=== PATIENT | female | born 1940 | race Caucasian/White ===

== ENCOUNTER 2016-07-26 17:56 | Inpatient (IN) | payer MEDICARE, BC ==
[~2016-07-26] VITALS: Ht 170.2 cm; Wt 77.1 kg
[2016-07-26] MEDS ORDERED: LURA40TA PO (18:04)
[2016-07-26] MEDS ORDERED: ALPR0.5T8 PO (18:04)
[2016-07-26] MEDS ORDERED: DICY20TA11 PO (18:04)
[2016-07-26] MEDS ORDERED: ALPR2TAB7 PO (18:04)
[2016-07-26] MEDS ORDERED: SIME125C81 PO (18:04)
[2016-07-26] MEDS ORDERED: TRAZ-147 PO (18:05)
--- NOTE | 2016-07-26 18:46 | NUR ---
RN-CO: PAGED DR HA TO OBTAIN ADMITTING ORDERS, AWAITING TO CALL BACK.
[2016-07-26 20:00] VITALS: BP 132/77
[2016-07-26] MEDS ORDERED: ZOLPIDEM TARTRATE 5 MG TABLET ONE (20:45)
[2016-07-26] MEDS: ZOLPIDEM TARTRATE 5 MG TABLET PO PRN (22:42)
[2016-07-27 00:25] VITALS: BP 126/87
[2016-07-27] MEDS ORDERED: MAG HYDROX/AL HYDROX/SIMETH 30 ML UDC ONE (04:16)
[2016-07-27] MEDS ORDERED: LORAZEPAM 0.5 MG TABLET ONE ×2 (04:16→04:27)
[2016-07-27] MEDS: LORAZEPAM 0.5 MG TABLET PO PRN ×2 (04:25→12:11)
[2016-07-27] MEDS: MAG HYDROX/AL HYDROX/SIMETH 30 ML UDC PO PRN (04:25)
--- NOTE | 2016-07-27 04:41 | NUR ---
ADMITTING RN NOTE: ADMITTED THIS 75 Y/O FEMALE FROM [facility]. PATIENT IS ON 5150 HOLD FOR GD. PER HOLD PATIENT WAS BROUGHT INTO THE EMERGENCY DEPT BY AMBULANCE. PT'S PRIMARY CARE PHYSICIAN CALLED AN AMBULANCE FOR HER SHE CALLS HIS HOUSE FREQUENTLY ASKING FOR HELP. PT LIVES ALONE AND HAS NO FAMILY SUPPORT, SO HER PRIMARY CARE PHYSICIAN REPORTED THAT SHE SOMETIMES CALLS HIS HOUSE MUCH 70 TIMES/DAY BEGGING HIM TO SEND HELP FOR HER. RN ASKED PT WHAT TYPE OF HELP SHE NEEDS. SHE REPLIED THAT SHE NEEDS HELP TO CARE FOR HER HOUSE, AND HELP WITH ADL'S AND COOKING AND MANAGING HER MEDICATIONS. PT HAS HX OF BIPOLAR AND CONSTANTLY YELLING FOR HELP IN THE HALLWAY WHILE IN ER. UPON FACE TO FACE ASSESSMENT. PT IS ALERT AND ORIENTED X1, CONFUSED, ANXIOUS. NO SOB. RESPIRATION EVEN AND UNLABORED. NO COMPLAIN OF PAIN/DISCOMFORT AT THIS TIME. NO ACUTE DISTRESS NOTED. SKIN/BODY ASSESSMENT DONE. NOTED BREAST FOLDS REDNESS. BOTH UPPER LEG SCAB. RIGHT ARM BRUISE. WOUND CONSULT TRIGGERED. PATIENT IS UNDER DR. HA FOR PSYCH AND DR. SMITH FOR MEDICAL CARE. CHECKED BELONGINGS FOR CONTRABAND. NO CONTRABAND. BED IN LOW AND LOCKED POSITION. SIDERAILS UPX2. CALL LIGHT WITHIN REACH, WILL CONTINUE TO MONITOR FOR SAFETY AND BEHAVIOR [id number].
[2016-07-27 07:50] VITALS: BP 145/79
[2016-07-27 07:59] LABS: ALBUMIN 3.6 g/dL (3.4-5.0); BASOPHILS % (AUTO) 0.5 % (0.0-2.0); BILIRUBIN,TOTAL 0.7 mg/dL (0.2-1.0); CALCIUM, SERUM 9.3 mg/dL (8.5-10.1); CREATININE 0.9 mg/dL (0.6-1.3); EOSINOPHILS # (AUTO) 0.1 /CMM (0.0-0.7); HEMATOCRIT 42 % (33-45); HEMOGLOBIN 14.2 g/dL (11.5-14.8); LYMPHOCYTES # (AUTO) 2.5 /CMM (0.8-4.8); LYMPHOCYTES % (AUTO) 30.5 % (20.0-44.0); MEAN CORPUSCULAR HEMOGLOBIN 31 PG (26.0-33.0); MEAN CORPUSCULAR HGB CONC 34 g/dl (31.0-36.0); MEAN CORPUSCULAR VOLUME 93 fL (82-100); MONOCYTES # (AUTO) 0.7 /CMM (0.1-1.30); PLATELET COUNT (AUTO) 355 /CMM (150-450); POTASSIUM 3.9 mmol/L (3.5-5.1); RDW COEFFICIENT OF VARIATION 12.2 (11.5-15.0); RED BLOOD CELL COUNT(AUTO) 4.55 MIL/uL (4.0-5.2); TOTAL PROTEIN, SERUM 7.9 g/dL (6.4-8.2); WHITE BLOOD COUNT (AUTO) 8.4 K/uL (4.3-11.0)
[2016-07-27 08:04] LABS: CHOLESTEROL 193 mg/dL (<200); HDL CHOLESTEROL 33 mg/dL (40-60); LDL 134 mg/dL (0-99); TRIGLYCERIDES 197 mg/dL (30-150)
[2016-07-27] MEDS: QUETIAPINE FUMARATE 25 MG TABLET PO SCH ×2 (12:06→20:10)
[2016-07-27] MEDS: PAROXETINE HCL 10 MG TABLET PO SCH (12:06)
--- NOTE | 2016-07-27 12:12 | NUR ---
GPS RN: PATIENT IS ANXIOUS AND RESTLESS, HARD TO REDIRECT, PROVIDED WITH CALM AND SAFE ENVIRONMENT, INSTRUCTED ON RELAXATION, ADMINISTERED ATIVAN 1MG PO, CONTINUE TO MONITOR.
[2016-07-27] MEDS: MAGNESIUM HYDROXIDE 30 ML UDC PO PRN (14:58)
--- NOTE | 2016-07-27 15:00 | NUR ---
GPS RN: MOM ADMINISTERED FOR C/O CONSTIPATION.
[2016-07-27 16:00] VITALS: BP 122/80
[2016-07-27] MEDS: GABAPENTIN 100 MG CAPSULE PO SCH (16:38)
[2016-07-27 20:00] VITALS: BP 112/65
[2016-07-27] MEDS: LURASIDONE HCL 40 MG PO SCH (21:17)
[2016-07-27] MEDS: ZOLPIDEM TARTRATE 5 MG TABLET PO PRN (22:13)
[2016-07-28] MEDS: MAGNESIUM HYDROXIDE 30 ML UDC PO PRN (05:05)
[2016-07-28] MEDS: LORAZEPAM 0.5 MG TABLET PO PRN (05:13)
[2016-07-28 08:00] VITALS: BP 139/65
[2016-07-28] MEDS: PAROXETINE HCL 10 MG TABLET PO SCH (08:23)
[2016-07-28] MEDS: GABAPENTIN 100 MG CAPSULE PO SCH ×2 (08:23→17:01)
[2016-07-28] MEDS: QUETIAPINE FUMARATE 25 MG TABLET PO SCH ×2 (08:23→21:24)
[2016-07-28] MEDS: ACETAMINOPHEN 325 MG TABLET PO PRN (08:23)
[2016-07-28] MEDS: MAG HYDROX/AL HYDROX/SIMETH 30 ML UDC PO PRN (08:51)
[2016-07-28] MEDS ORDERED: BELLADONNA /PHENOBARB 5 ML UDC 5 ML UDC PO PRN (10:30)
[2016-07-28] MEDS: DICYCLOMINE HCL 10 MG CAPSULE PO PRN (11:12)
[2016-07-28] MEDS ORDERED: LORAZEPAM INJ 2 MG/ML VIAL IM ONE (11:30)
--- NOTE | 2016-07-28 11:32 | NUR ---
GPS RN NOTE: PATIENT EXTREMELY ANXIOUS AND RESTLESS, PARANOID PT REQUESTED IM MEDICATIONS DR HA ORDER ATIVAN 2 MG IM ONCE, VSS STABLE PATIENT TOLERATED WELL WILL CONTINUE MONITORING FOR SAFETY AND BEHAVIOR Q 15 MIN
--- NOTE | 2016-07-28 12:49 | NUR ---
GPS RN NOTE: PATIENT COMPLAINING OF NAUSEA DR GUZMAN NOTIFIED WAITING FOR ORDERS.
[2016-07-28 15:50] VITALS: BP 138/76
[2016-07-28] MEDS ORDERED: ONDANSETRON HCL 4 MG/5 ML SOLUTION PO PRN (18:00)
[2016-07-28] MEDS ORDERED: ONDANSETRON 4 MG TAB.RAPDIS PO PRN (18:00)
[2016-07-28 20:29] VITALS: BP 120/70
[2016-07-28] MEDS: HOME MED MISCELLANEOUS PO PRN (21:22)
[2016-07-28] MEDS: LURASIDONE HCL 40 MG PO SCH (21:25)
[2016-07-29] MEDS: LORAZEPAM 0.5 MG TABLET PO PRN ×2 (03:38→12:56)
[2016-07-29] MEDS: HOME MED MISCELLANEOUS PO PRN ×2 (05:46→11:52)
[2016-07-29] MEDS: DICYCLOMINE HCL 10 MG CAPSULE PO PRN (07:58)
[2016-07-29 08:00] VITALS: BP 116/89
[2016-07-29] MEDS: QUETIAPINE FUMARATE 25 MG TABLET PO SCH ×2 (08:00→21:36)
[2016-07-29] MEDS: GABAPENTIN 100 MG CAPSULE PO SCH ×4 (08:00→21:36)
[2016-07-29] MEDS: PAROXETINE HCL 10 MG TABLET PO SCH (08:00)
--- NOTE | 2016-07-29 10:45 | NUR ---
WOUND CARE CONSULT: PATIENT SEEN AND SKIN ASSESSMENT DONE. PATIENT ALERT, ORIENTED, AMBULATORY, INDEPENDENT WITH BED MOBILITY, CONTINENT, MALACHI 22. SEE TODAY'S SKIN ASSESSMENT IN PCS ALONG WITH RECOMMENDATIONS DISCUSSED WITH NURSING STAFF. IN AGREEMENT WITH PLAN OF CARE. Addendum: 07/29/16 at 1046 by PAULIE ABDUL WNDNU Amended: Links added.
[2016-07-29] MEDS ORDERED: Z GUARD REMEDY 2 OZ OINT TP PRN (11:00)
[2016-07-29] MEDS: Z GUARD REMEDY 2 OZ OINT TP SCH ×2 (12:03→17:06)
[2016-07-29 16:00] VITALS: BP 124/78
--- NOTE | 2016-07-29 16:35 | NUR ---
Initial discharge plan : Pt. lives in [address] [place] [address] and would like to return. Pt's lithography contact worker is her spring forger Lang Wayne [phone]. SW will work with pt. and MD and will help form safe and proper discharge. Pt. may need placement.
--- NOTE | 2016-07-29 19:30 | NUR ---
GPS RN NOTE, RECEIVED PATIENT AWAKE AND IN BED, NO S/S OR COMPLAINTS OF PAIN AT THIS TIME. PATIENT IS DISPLAYING NO S/S OF APPARENT DISTRESS AT THIS TIME. PATIENT BREATHING IS UNLABORED WITH EQUAL RISE AND FALL OF THE CHEST. PATIENT IS ALERT AND ORIENTED X 1 ON ROOM AIR WITH A SPO2 98%. PATIENT COMPLIANT WITH MEDICATIONS, COOPERATIVE, ANXIOUS, CONFUSED AT TIMES, AND NEEDS REORIENTATION. PATIENT DENIES SUICIDE AND HOMICIDAL IDEATIONS AT THIS TIME. PATIENT ASSISTED WITH TURNING AND REPOSITIONING Q2HR AND PRN FOR COMFORT AND CIRCULATION. PATIENT HAS NO NEEDS AT THIS TIME. PATIENT REFUSED SKIN ASSESSMENT TODAY. PATIENT EDUCATED ON THE USE OF THE CALL GERMAN. PATIENT BED SIDE RAILS UP X2 FOR SAFETY, BED IS LOCKED AND LOW WILL CONTINUE TO MONITOR AND MAINTAIN SAFETY.
[2016-07-29 20:00] VITALS: BP 134/69
[2016-07-29] MEDS: LURASIDONE HCL 40 MG PO SCH (21:36)
[2016-07-30] MEDS: LORAZEPAM 0.5 MG TABLET PO PRN (03:01)
--- NOTE | 2016-07-30 03:01 | NUR ---
GPS RN NOTE, PATIENT HAS A COMPLAINT OF FEELING ANXIOUS AND WOULD LIKE MEDICATION TO HELP CALM HER DOWN. PATIENT VITAL SIGNS ARE STABLE. GAVE ATIVAN 1MG PO Q8HR PRN ORDERED. WILL REASSESS FOR ANXIETY AND I WILL CONTINUE TO MONITOR THIS PATIENT.
[2016-07-30] MEDS: MAGNESIUM HYDROXIDE 30 ML UDC PO PRN (03:09)
--- NOTE | 2016-07-30 03:09 | NUR ---
GPS RN NOTE, PATIENT HAS A COMPLAINT OF HAVING CONSTIPATION AND WOULD LIKE MEDICATION AT THIS TIME. PATIENT VITAL SIGNS ARE STABLE. GAVE MILK OF MAGNESIA 30ML 1 UNIT DOSE PO Q12HR PRN ORDERED. WILL CONTINUE TO MONITOR THIS PATIENT.
[2016-07-30] MEDS: DICYCLOMINE HCL 10 MG CAPSULE PO PRN (05:52)
--- NOTE | 2016-07-30 05:52 | NUR ---
GPS RN NOTE, PATIENT HAS A COMPLAINT OF BOWEL IRRITATION AND WOULD LIKE MEDICATION AT THIS TIME. PATIENT VITAL SIGNS ARE STABLE. GAVE BENTYL 10MG PO Q6HR PRN ORDERED. WILL CONTINUE TO MONITOR THIS PATIENT.
--- NOTE | 2016-07-30 06:00 | NUR ---
GPS RN NOTE, PATIENT HAS A COMPLAINT OF FEELING CONSTIPATED. PAGED [facility] AND INFORM DR MALAVE OF MY FINDINGS. DR MALAVE ORDERED DULCOLAX SUPPOSITORY PER RECTAL DAILY PRN. ALL ORDERS NOTED AND CARRIED OUT. WILL CONTINUE TO MONITOR THIS PATIENT.
[2016-07-30] MEDS ORDERED: BISACODYL SUPP (10 MG) 10 MG/SUPP.RECT SUPP.RECT RC ONE (06:09)
[2016-07-30] MEDS: Z GUARD REMEDY 2 OZ OINT TP SCH ×2 (06:15→18:48)
[2016-07-30] MEDS: BISACODYL SUPP (10 MG) 10 MG/SUPP.RECT SUPP.RECT RC PRN (06:16)
[2016-07-30] MEDS: PANTOPRAZOLE 40 MG TABLET.DR PO SCH (07:30)
[2016-07-30 08:00] VITALS: BP 147/81
[2016-07-30] MEDS: QUETIAPINE FUMARATE 25 MG TABLET PO SCH ×3 (08:34→17:28)
[2016-07-30] MEDS: PAROXETINE HCL 10 MG TABLET PO SCH (08:34)
[2016-07-30] MEDS: GABAPENTIN 100 MG CAPSULE PO SCH ×4 (09:00→21:13)
[2016-07-30 16:00] VITALS: BP 123/69
--- NOTE | 2016-07-30 19:30 | NUR ---
GPS RN NOTE, RECEIVED PATIENT AWAKE AND IN BED, NO S/S OR COMPLAINTS OF PAIN AT THIS TIME. PATIENT IS DISPLAYING NO S/S OF APPARENT DISTRESS AT THIS TIME. PATIENT BREATHING IS UNLABORED WITH EQUAL RISE AND FALL OF THE CHEST. PATIENT IS ALERT AND ORIENTED X 2 ON ROOM AIR WITH A SPO2 96%. PATIENT COMPLIANT WITH MEDICATIONS, COOPERATIVE, ANXIOUS, CONFUSED AT TIMES, AND NEEDS REORIENTATION. PATIENT DENIES SUICIDE AND HOMICIDAL IDEATIONS AT THIS TIME. PATIENT ASSISTED WITH TURNING AND REPOSITIONING Q2HR AND PRN FOR COMFORT AND CIRCULATION. PATIENT HAS NO NEEDS AT THIS TIME. PATIENT REFUSED SKIN ASSESSMENT TODAY. PATIENT EDUCATED ON THE USE OF THE CALL GERMAN. PATIENT BED SIDE RAILS UP X2 FOR SAFETY, BED IS LOCKED AND LOW WILL CONTINUE TO MONITOR AND MAINTAIN SAFETY.
[2016-07-30 20:25] VITALS: BP 134/77
[2016-07-30] MEDS: ZOLPIDEM TARTRATE 5 MG TABLET PO PRN (21:13)
--- NOTE | 2016-07-30 21:13 | NUR ---
GPS RN NOTE, PATIENT HAS A COMPLAINT OF NOT BEING ABLE TO SLEEP AND WOULD LIKE A SLEEPING AID AT THIS TIME. PATIENT VITAL SIGNS ARE STABLE. GAVE AMBIEN 5 MG PO HS ORDERED. WILL REASSESS FOR INSOMNIA AND I WILL CONTINUE TO MONITOR THIS PATIENT.
[2016-07-30] MEDS: LURASIDONE HCL 40 MG PO SCH (21:21)
--- NOTE | 2016-07-30 21:21 | NUR ---
GPS RN NOTE, PATIENT REFUSED TO TAKE LURASIDONE HCL 40 MG PO HS. OFFERED MEDICATION THREE TIMES AND STILL PATIENT REFUSED STATING, "I DON'T NEED THAT MEDICATION ANYMORE". EDUCATED THE PATIENT ON THE RISKS AND BENEFITS OF TAKING AND REFUSING AFOREMENTIONED MEDICATION. WILL CONTINUE TO MONITOR THIS PATIENT.
[2016-07-31] MEDS: LORAZEPAM 0.5 MG TABLET PO PRN (06:38)
[2016-07-31] MEDS: Z GUARD REMEDY 2 OZ OINT TP SCH ×2 (06:43→18:36)
[2016-07-31] MEDS: PANTOPRAZOLE 40 MG TABLET.DR PO SCH (07:30)
[2016-07-31 08:48] VITALS: BP 110/57
[2016-07-31] MEDS: GABAPENTIN 100 MG CAPSULE PO SCH ×4 (09:00→22:28)
[2016-07-31] MEDS: PAROXETINE HCL 10 MG TABLET PO SCH (09:39)
[2016-07-31] MEDS: QUETIAPINE FUMARATE 25 MG TABLET PO SCH ×3 (09:39→17:25)
--- NOTE | 2016-07-31 10:06 | NUR ---
SW left a voicemail for pt's acid washer operator, Lang Wayne [phone] regarding possibility of placing her in a facility or if she refuses facility and wants to return home, whether he will be able to rock picker the patient.
[2016-07-31 15:57] VITALS: BP 142/76
--- NOTE | 2016-07-31 20:00 | NUR ---
PATIENT IS RESTING COMFORTABLY IN BED, CALM AT THIS TIME, NO SOB, NO DISTRESS, ABLE TO ANSWER QUESTIONS APPROPRIATELY, NO BEHAVIOR DISTURBANCE AT THIS TIME, MADE SAFE AND COMFORTABLE, WILL CONTINUE TO MONITOR.
[2016-07-31 20:49] VITALS: BP 138/76
[2016-07-31 22:00] VITALS: BP 138/76
[2016-07-31] MEDS: LURASIDONE HCL 40 MG PO SCH (22:28)
[2016-08-01] MEDS: MAGNESIUM HYDROXIDE 30 ML UDC PO PRN (02:21)
[2016-08-01] MEDS: LORAZEPAM 0.5 MG TABLET PO PRN ×2 (02:22→10:24)
--- NOTE | 2016-08-01 02:34 | NUR ---
PATIENT IS ANXIOUS, CRYING OUT, REASSURED PATIENT SHE IS BEING MONITORED FREQUENTLY. GIVEN ATIVAN 1 MG PO.
[2016-08-01] MEDS: Z GUARD REMEDY 2 OZ OINT TP SCH ×2 (05:54→17:03)
[2016-08-01] MEDS: PANTOPRAZOLE 40 MG TABLET.DR PO SCH (06:22)
[2016-08-01] MEDS: BISACODYL SUPP (10 MG) 10 MG/SUPP.RECT SUPP.RECT RC PRN (06:50)
--- NOTE | 2016-08-01 07:04 | NUR ---
PATIENT IS AWAKE AND ALERT, WITH EPISODES OF ANXIETY AND SLEEPLESSNESS, GIVEN ATIVAN.COMPLAINING OF CONSTIPATION, GIVEN MOM. AFTER 4 HOURS, NO BM YET, REQUESTED SUPPOSITORY. PATIENT FEELING DISCOMFORT FROM ABDOMINAL SPASM. PATIENT IS RESTLESS, WALKING IN THE HALLWAY, UNABLE TO REDIRECT TO LIE DOWN, PATIENT VERY UPSET.
[2016-08-01 08:00] VITALS: BP 139/85
[2016-08-01] MEDS: PAROXETINE HCL 10 MG TABLET PO SCH (08:22)
[2016-08-01] MEDS: QUETIAPINE FUMARATE 25 MG TABLET PO SCH ×3 (08:22→17:02)
[2016-08-01] MEDS: GABAPENTIN 100 MG CAPSULE PO SCH ×3 (08:31→17:02)
[2016-08-01] MEDS: DICYCLOMINE HCL 10 MG CAPSULE PO PRN (10:23)
--- NOTE | 2016-08-01 10:29 | NUR ---
GPS RN: PATIENT IS INCREASINGLY ANXIOUS AND C/O ABDOMINAL CRAMPS. WANDERING IN THE HALLWAY, HARD TO REDIRECT. ADMINISTERED ATIVAN 1 MG FOR ANXIETY AND BENTYL 20MG FOR SPASMS. PROVIDED WITH CALM AND SAFE ENVIRONMENT, INSTRUCTED ON RELAXATION TECHNIQUE. VS STABLE. CONTINUE TO MONITOR.
--- NOTE | 2016-08-01 13:49 | NUR ---
SW received a voicemail from Lang Wayne [phone] and they agreed that pt. needs rehab first.
--- NOTE | 2016-08-01 13:53 | NUR ---
JENNIFER faxed a referral to [facility] [address] [place] [address] . will follow up
[2016-08-01 16:00] VITALS: BP 144/81
[2016-08-01 20:00] VITALS: BP 130/60
[2016-08-01] MEDS: LURASIDONE HCL 40 MG PO SCH (23:29)
[2016-08-02] MEDS: ZOLPIDEM TARTRATE 5 MG TABLET PO PRN ×2 (01:48→21:54)
[2016-08-02] MEDS: Z GUARD REMEDY 2 OZ OINT TP SCH ×2 (06:00→17:14)
[2016-08-02 08:13] VITALS: BP 127/63
[2016-08-02] MEDS: PANTOPRAZOLE 40 MG TABLET.DR PO SCH (08:33)
[2016-08-02] MEDS: PAROXETINE HCL 10 MG TABLET PO SCH (08:33)
[2016-08-02] MEDS: QUETIAPINE FUMARATE 25 MG TABLET PO SCH ×4 (08:34→21:49)
[2016-08-02] MEDS: GABAPENTIN 100 MG CAPSULE PO SCH ×3 (08:34→17:14)
--- NOTE | 2016-08-02 14:52 | NUR ---
Per Becky in admission, patient was accepted to [facility] ([address] [place] [address]- [phone]). Patient's friend Priscilla Wayne ([phone]) is notified and agrees with discharge plan. Per Becky, patient can be sent after lunch on 08/05/2016. Patient informed and agrees with discharge plan.
[2016-08-02 16:05] VITALS: BP 147/82
[2016-08-02 20:00] VITALS: BP 144/78
[2016-08-02] MEDS: MAGNESIUM HYDROXIDE 30 ML UDC PO PRN (20:27)
[2016-08-02] MEDS: LURASIDONE HCL 40 MG PO SCH (21:41)
[2016-08-03] MEDS: BISACODYL SUPP (10 MG) 10 MG/SUPP.RECT SUPP.RECT RC PRN (02:02)
[2016-08-03] MEDS: Z GUARD REMEDY 2 OZ OINT TP SCH ×2 (06:53→17:00)
[2016-08-03] MEDS: LORAZEPAM 0.5 MG TABLET PO PRN (06:56)
[2016-08-03] MEDS: GABAPENTIN 100 MG CAPSULE PO SCH ×3 (08:24→16:20)
[2016-08-03] MEDS: PANTOPRAZOLE 40 MG TABLET.DR PO SCH (08:24)
[2016-08-03] MEDS: PAROXETINE HCL 10 MG TABLET PO SCH (08:24)
[2016-08-03] MEDS: QUETIAPINE FUMARATE 25 MG TABLET PO SCH ×4 (08:26→21:21)
[2016-08-03 08:37] VITALS: BP 131/78
[2016-08-03] MEDS: DICYCLOMINE HCL 10 MG CAPSULE PO PRN ×2 (09:42→16:20)
[2016-08-03] MEDS: HOME MED MISCELLANEOUS PO PRN (11:34)
[2016-08-03 16:19] VITALS: BP 127/71
[2016-08-03] MEDS: ACETAMINOPHEN 325 MG TABLET PO PRN (16:59)
--- NOTE | 2016-08-03 18:15 | NUR ---
GPS RN: PATIENT IS C/O ABDOMINAL PAIN, 09/25, ASKING FOR TYLENOL ADMINISTERED TYLENOL 650MG PO ORDERED. PATIENT IS NOT IN ANY DISTRESS, CONTINUE TO MONITOR.
[2016-08-03 20:00] VITALS: BP 122/57
[2016-08-03] MEDS: LURASIDONE HCL 40 MG PO SCH (21:20)
[2016-08-03] MEDS: ZOLPIDEM TARTRATE 5 MG TABLET PO PRN (22:21)
[2016-08-04] MEDS: Z GUARD REMEDY 2 OZ OINT TP SCH ×2 (06:07→17:26)
[2016-08-04 08:00] VITALS: BP 147/77
[2016-08-04] MEDS: PAROXETINE HCL 10 MG TABLET PO SCH (08:20)
[2016-08-04] MEDS: PANTOPRAZOLE 40 MG TABLET.DR PO SCH (08:20)
[2016-08-04] MEDS: GABAPENTIN 100 MG CAPSULE PO SCH ×3 (08:20→17:25)
[2016-08-04] MEDS: QUETIAPINE FUMARATE 25 MG TABLET PO SCH ×4 (08:33→21:31)
[2016-08-04 16:00] VITALS: BP 124/67
[2016-08-04 20:20] VITALS: BP 116/62
[2016-08-04] MEDS: LURASIDONE HCL 40 MG PO SCH (21:31)
--- NOTE | 2016-08-05 00:59 | NUR ---
Pt has been confused, anxious, fragmented, & argumentative but med compliant w/o any promptings.
[2016-08-05] MEDS: LORAZEPAM 0.5 MG TABLET PO PRN (05:14)
[2016-08-05] MEDS: Z GUARD REMEDY 2 OZ OINT TP SCH (06:26)
[2016-08-05 08:00] VITALS: BP 153/77
--- NOTE | 2016-08-05 08:30 | NUR ---
MS RN RECEIVED PATIENT ON LISA,NO DISTRESS NOTED, DENIES PAIN AT THIS TIME.
[2016-08-05] MEDS: GABAPENTIN 100 MG CAPSULE PO SCH ×2 (09:11→13:16)
[2016-08-05] MEDS: PAROXETINE HCL 10 MG TABLET PO SCH (09:11)
[2016-08-05] MEDS: PANTOPRAZOLE 40 MG TABLET.DR PO SCH (09:11)
[2016-08-05] MEDS: QUETIAPINE FUMARATE 25 MG TABLET PO SCH ×2 (09:13→13:16)
[2016-08-05] MEDS ORDERED: POLYETHYLENE GLYCOL 3350 17 GM POWD.PACK PO SCH (11:00)
--- NOTE | 2016-08-05 13:30 | NUR ---
MS RN PATIENT TRANSFERRED TO [facility]IA [facility],. REPORT GIVEN TO JULIETTE,ALL NEEDS ATTENDED.
--- NOTE | 2016-08-05 17:36 | NUR ---
Discharge note: Pt.discharged to [facility] ([address] [place] [phone]- [phone] )via [facility]. Patient's friend Charlener Lang Wayne ([phone]) was notified and agreed with discharge plan. Pt. also was calm and cooperative and agreeable. Pt. denies suicidal/homicidal ideations. Discharge instructions were provided to the accepting facility and discharge paperwork has been signed.
== END 2016-08-05 13:45 | DRG 885 ==
LOC: GPS 17:56
PROVIDERS: ADMIT Psychiatry & Neurology Psychiatry; ATTEND Internal Medicine
DX: F31.5 Bipolar disorder, current episode depressed, severe, with psychotic features (principal); I10 Essential (primary) hypertension; M19.90 Unspecified osteoarthritis, unspecified site; F29 Unspecified psychosis not due to a substance or known physiological condition; E78.5 Hyperlipidemia, unspecified
CPT/HCPCS: 36415; 80053-TC; 80061-TC; 85025-TC; 87081-TC; A6402; J2060

== ENCOUNTER 2024-01-09 18:17 | Inpatient (IN) | payer BC, MEDICAID, MEDICARE ==
[~2024-01-09] VITALS: Ht 162.6 cm; Wt 59.9 kg
[~2024-01-09 18:17] MED LIST: ALPR0.5T8 PO; ALPR2TAB7 PO; DICY20TA11 PO; LURA40TA PO; SIME125C81 PO; TRAZ-257 PO
[2024-01-09] MEDS ORDERED: OLANZAPINE 10 MG VIAL IM ONE (18:40)
[2024-01-09] MEDS: OLANZAPINE 10 MG VIAL IM ONE (18:48)
[2024-01-09 18:49] LABS: BASOPHILS # (AUTO) 0.1 K/uL (0.0-0.2); BASOPHILS % (AUTO) 1.4 % (0.0-2.0); EOSINOPHILS # (AUTO) 0.1 K/uL (0.0-0.7); EOSINOPHILS % (AUTO) 2.1 % (0.0-6.0); HEMATOCRIT 40 % (33-45); HEMOGLOBIN 13.4 g/dL (11.5-14.8); LYMPHOCYTES # (AUTO) 2.2 K/uL (0.8-4.8); MEAN CORPUSCULAR HEMOGLOBIN 32 PG (26.0-33.0); MEAN CORPUSCULAR HGB CONC 33 g/dl (31.0-36.0); MEAN CORPUSCULAR VOLUME 96 fL (82-100); MONOCYTES # (AUTO) 0.5 K/uL (0.1-1.30); MONOCYTES % (AUTO) 6.5 % (2.0-12.0); NEUTROPHILS # (AUTO) 4.1 K/uL (1.8-8.9); PLATELET COUNT (AUTO) 343 K/uL (150-450); RED CELL DISTRIBUTION WIDTH 13.6 % (11.5-15.0)
[2024-01-09 18:59] LABS: ALANINE AMINOTRANSFERASE 89 U/L (12-78); ALBUMIN 2.7 g/dL (3.4-5.0); ALCOHOL, BLOOD < 3 mg/dL (0-10); ALKALINE PHOSPHATASE 80 U/L (46-116); ASPARTATE AMINOTRANSFERASE 65 U/L (15-37); BILIRUBIN,DIRECT 0.1 mg/dL (0.0-0.2); BILIRUBIN,TOTAL 0.4 mg/dL (0.2-1.0); CALCIUM, SERUM 9.1 mg/dL (8.5-10.1); CARBON DIOXIDE 23 mmol/L (21-32); CHLORIDE 104 mmol/L (98-107); CREATININE 0.6 mg/dL (0.6-1.3); GLUCOSE 98 mg/dL (74-106); POTASSIUM 4.1 mmol/L (3.5-5.1); SODIUM SERUM 137 mmol/L (136-145); TOTAL PROTEIN, SERUM 6.5 g/dL (6.4-8.2); UREA NITROGEN, BLOOD 5 mg/dL (7-18)
[2024-01-09 19:00] LABS: SALICYLATE < 0.2 mg/dL (2.8-20.0)
[2024-01-09 19:01] LABS: ACETAMINOPHEN <10 ug/ml (10-30)
[2024-01-09 19:46] LABS: APPEARANCE,URINE SLIGHTLY CLOUDY (CLEAR); BILIRUBIN,URINE NEGATIVE (NEGATIVE); BLOOD, URINE 1+ Ery/uL (NEGATIVE); COLOR,URINE YELLOW (YELLOW); KETONES,URINE TRACE mg/dL (NEGATIVE); LEUKOCYTE ESTERASE ,URINE 3+ (NEGATIVE); NITRITE, URINE POSITIVE (NEGATIVE); PROTEIN,URINE 1+ mg/dl (NEGATIVE); UGLUCOSE NEGATIVE (NEGATIVE); UROBILINOGEN,URINE 0.2 EU/dL (0.2)
[2024-01-09 19:52] LABS: ADD URINE CULTURE YES; BACTERIA,URINE 1+ /HPF (None Seen); WBC,URINE 21-50 /HPF (0-3); YEAST,URINE Few /HPF (None Seen)
[2024-01-09 19:53] LABS: CALCIUM PHOSPHATE CRYSTALS,UR Few /HPF (None Seen)
[2024-01-09 19:59] LABS: AMPHETAMINE, URINE NEGATIVE (NEGATIVE); BARBITURATE, URINE NEGATIVE (NEGATIVE); BENZODIAZEPINE, URINE NEGATIVE (NEGATIVE); CANNABINOID, URINE NEGATIVE (NEGATIVE); COCCAINE, URINE NEGATIVE (NEGATIVE); OPIATE, URINE NEGATIVE (NEGATIVE); PHENCYCLIDINE SCREEN,URINE NEGATIVE (NEGATIVE)
[2024-01-09] MEDS ORDERED: CEPHALEXIN MONOHYDRATE 500 MG CAPSULE PO ONE (20:04)
[2024-01-09] MEDS: CEPHALEXIN MONOHYDRATE 500 MG CAPSULE PO ONE (20:05)
[2024-01-10] MEDS ORDERED: MINERAL OIL 133 ML (PYXIS) 1 EA ENEMA RC ONE (05:46)
[2024-01-10] MEDS: MINERAL OIL 133 ML (PYXIS) 1 EA ENEMA RC ONE (05:52)
[2024-01-10] MEDS ORDERED: ONDANSETRON HCL/PF 4 MG/2 ML VIAL IVP PRN (06:00)
[2024-01-10] MEDS ORDERED: Z GUARD REMEDY 4 OZ OINT TP PRN (06:00)
[2024-01-10] MEDS ORDERED: CEPHALEXIN MONOHYDRATE 500 MG CAPSULE PO ONE (08:01)
[2024-01-10] MEDS ORDERED: PANTOPRAZOLE 40 MG TABLET.DR PO ONE (08:02)
[2024-01-10] MEDS: PANTOPRAZOLE 40 MG TABLET.DR PO SCH (08:06)
[2024-01-10] MEDS: CEPHALEXIN MONOHYDRATE 500 MG CAPSULE PO SCH (08:06)
[2024-01-10 08:45] VITALS: BP 118/65; TEMP 98.4; O2SAT 98
[2024-01-10] MEDS ORDERED: MAGN400O6 PO (09:10)
[2024-01-10] MEDS ORDERED: NA P133E RC (09:10)
[2024-01-10] MEDS ORDERED: ZINC220C6 PO (09:10)
[2024-01-10] MEDS ORDERED: IPRA0.2S49 IH ×2 (09:10)
[2024-01-10] MEDS ORDERED: IPRA3AMP23 IH (09:10)
[2024-01-10] MEDS ORDERED: MELA3TAB41 PO (09:10)
[2024-01-10] MEDS ORDERED: LACT10SO29 PO (09:10)
[2024-01-10] MEDS ORDERED: DIVA250T4 PO (09:10)
[2024-01-10] MEDS ORDERED: MAG355OR18 PO (09:10)
[2024-01-10] MEDS ORDERED: ASCO500T10 PO (09:10)
[2024-01-10] MEDS ORDERED: BISA10SU11 RC (09:10)
[2024-01-10] MEDS ORDERED: QUET50TA PO (09:10)
[2024-01-10] MEDS ORDERED: ALBU1.257 IH (09:10)
[2024-01-10] MEDS ORDERED: ACET325T53 PO (09:10)
[2024-01-10] MEDS ORDERED: ALBU1.25 IH (09:10)
[2024-01-10] MEDS ORDERED: TRAM50TA2 PO (09:10)
[2024-01-10] MEDS ORDERED: SENN-291 PO (09:10)
[2024-01-10] MEDS ORDERED: ASPI-869 PO (09:10)
[2024-01-10] MEDS ORDERED: METH500T6 PO (09:10)
[2024-01-10] MEDS ORDERED: DOCU100C36 PO (09:10)
[2024-01-10] MEDS ORDERED: QUET200T PO (09:10)
[2024-01-10] MEDS ORDERED: ERGO50CA PO (09:10)
[2024-01-10] MEDS ORDERED: POLY17PO4 PO (09:10)
[2024-01-10] MEDS ORDERED: CALC-343 PO (09:10)
[2024-01-10] MEDS ORDERED: OXYC5TAB3 PO (09:10)
[2024-01-10] MEDS ORDERED: PANT40TA49 PO (09:10)
[2024-01-10 10:21] LABS: BASOPHILS # (AUTO) 0.1 K/uL (0.0-0.2); BASOPHILS % (AUTO) 0.9 % (0.0-2.0); EOSINOPHILS # (AUTO) 0.1 K/uL (0.0-0.7); EOSINOPHILS % (AUTO) 2.3 % (0.0-6.0); HEMATOCRIT 41 % (33-45); HEMOGLOBIN 13.4 g/dL (11.5-14.8); LYMPHOCYTES # (AUTO) 1.4 K/uL (0.8-4.8); LYMPHOCYTES % (AUTO) 22.1 % (20.0-44.0); MEAN CORPUSCULAR HEMOGLOBIN 31 PG (26.0-33.0); MEAN CORPUSCULAR HGB CONC 33 g/dl (31.0-36.0); MEAN CORPUSCULAR VOLUME 95 fL (82-100); MONOCYTES # (AUTO) 0.5 K/uL (0.1-1.30); MONOCYTES % (AUTO) 7.4 % (2.0-12.0); NEUTROPHILS # (AUTO) 4.3 K/uL (1.8-8.9); NEUTROPHILS % (AUTO) 67.3 % (43.0-81.0); PLATELET COUNT (AUTO) 314 K/uL (150-450); RED CELL DISTRIBUTION WIDTH 13.6 % (11.5-15.0); WHITE BLOOD COUNT (AUTO) 6.4 K/uL (4.3-11.0)
[2024-01-10 10:51] LABS: ALBUMIN 2.3 g/dL (3.4-5.0); ALKALINE PHOSPHATASE 80 U/L (46-116); ASPARTATE AMINOTRANSFERASE 47 U/L (15-37); BILIRUBIN,TOTAL 0.4 mg/dL (0.2-1.0); CARBON DIOXIDE 23 mmol/L (21-32); CHLORIDE 105 mmol/L (98-107); CREATININE 0.5 mg/dL (0.6-1.3); GLUCOSE 70 mg/dL (74-106); MAGNESIUM 2.1 mg/dL (1.8-2.4); POTASSIUM 3.8 mmol/L (3.5-5.1); SODIUM SERUM 139 mmol/L (136-145); TOTAL PROTEIN, SERUM 6.4 g/dL (6.4-8.2); UREA NITROGEN, BLOOD 2 mg/dL (7-18)
[2024-01-10 11:08] LABS: ALANINE AMINOTRANSFERASE 80 U/L (12-78)
[2024-01-10 11:22] LABS: BILIRUBIN,DIRECT 0.1 mg/dL (0.0-0.2)
[2024-01-10] MEDS: QUETIAPINE FUMARATE 25 MG TABLET PO SCH (12:09)
[2024-01-10] MEDS: ACETAMINOPHEN 325 MG TABLET PO PRN (13:14)
[2024-01-10 16:00] VITALS: BP 105/75; TEMP 98.4; O2SAT 97
[2024-01-10] MEDS: MAGNESIUM HYDROXIDE 30 ML UDC PO PRN (18:04)
[2024-01-10 20:00] VITALS: BP 109/74; TEMP 98.2; O2SAT 95; O2SAT 96
[2024-01-10] MEDS: DIVALPROEX SODIUM 125 MG CAP.SPRINK PO SCH (21:02)
[2024-01-11 07:26] LABS: BASOPHILS # (AUTO) 0.1 K/uL (0.0-0.2); BASOPHILS % (AUTO) 1.1 % (0.0-2.0); EOSINOPHILS # (AUTO) 0.2 K/uL (0.0-0.7); EOSINOPHILS % (AUTO) 4.1 % (0.0-6.0); HEMATOCRIT 39 % (33-45); HEMOGLOBIN 12.7 g/dL (11.5-14.8); LYMPHOCYTES # (AUTO) 1.7 K/uL (0.8-4.8); LYMPHOCYTES % (AUTO) 33.5 % (20.0-44.0); MEAN CORPUSCULAR HEMOGLOBIN 31 PG (26.0-33.0); MEAN CORPUSCULAR HGB CONC 33 g/dl (31.0-36.0); MEAN CORPUSCULAR VOLUME 94 fL (82-100); MONOCYTES # (AUTO) 0.5 K/uL (0.1-1.30); MONOCYTES % (AUTO) 10.1 % (2.0-12.0); NEUTROPHILS # (AUTO) 2.5 K/uL (1.8-8.9); NEUTROPHILS % (AUTO) 51.2 % (43.0-81.0); PLATELET COUNT (AUTO) 314 K/uL (150-450); RED BLOOD CELL COUNT(AUTO) 4.11 MIL/uL (4.0-5.2); RED CELL DISTRIBUTION WIDTH 13.6 % (11.5-15.0)
[2024-01-11 07:47] LABS: ALANINE AMINOTRANSFERASE 60 U/L (12-78); ALBUMIN 2.2 g/dL (3.4-5.0); ALKALINE PHOSPHATASE 72 U/L (46-116); ASPARTATE AMINOTRANSFERASE 32 U/L (15-37); BILIRUBIN,TOTAL 0.3 mg/dL (0.2-1.0); CALCIUM, SERUM 9.2 mg/dL (8.5-10.1); CARBON DIOXIDE 28 mmol/L (21-32); CHLORIDE 106 mmol/L (98-107); CREATININE 0.5 mg/dL (0.6-1.3); GLUCOSE 87 mg/dL (74-106); MAGNESIUM 2.4 mg/dL (1.8-2.4); PHOSPHORUS 4.2 mg/dL (2.5-4.9); POTASSIUM 4.1 mmol/L (3.5-5.1); SODIUM SERUM 140 mmol/L (136-145); TOTAL PROTEIN, SERUM 6.1 g/dL (6.4-8.2); UREA NITROGEN, BLOOD 5 mg/dL (7-18)
[2024-01-11 19:38] VITALS: BP 110/59; TEMP 97.4; O2SAT 97
[2024-01-11 20:00] VITALS: BP 110/57; TEMP 97.4; O2SAT 97
[2024-01-11] MEDS: MUPIROCIN OINT 2% 22 GM TUBE NS SCH (20:22)
[2024-01-12 09:00] VITALS: BP 115/57; TEMP 97.7; O2SAT 95
[2024-01-12] MEDS: ENSURE ENLIVE 237 ML LIQUID (VANILLA) PO SCH (17:22)
[2024-01-12] MEDS: LORAZEPAM 1 MG TABLET PO PRN (18:16)
[2024-01-12 18:30] VITALS: BP 158/91; O2SAT 96
[2024-01-12 20:28] VITALS: BP 104/48; TEMP 97.9; O2SAT 96
[2024-01-13 07:30] VITALS: BP 108/68; TEMP 97.5; O2SAT 96
[2024-01-13] MEDS ORDERED: NITR100C PO (11:21)
[2024-01-13 15:58] VITALS: BP 128/71; TEMP 97.9; O2SAT 95
[2024-01-13 20:10] VITALS: BP 123/75; TEMP 97.5; O2SAT 99
[2024-01-14 07:30] VITALS: BP 123/65; TEMP 96.5; O2SAT 94
[2024-01-14] MEDS: NITROFURANTOIN/MONOHYDRATE MACROCRYSTALS 100 MG CAPSULE PO SCH (09:16)
[2024-01-14] MEDS: DOCUSATE SODIUM 100 MG CAPSULE PO SCH (10:35)
[2024-01-14] MEDS: POLYETHYLENE GLYCOL 3350 17 GM POWD.PACK PO PRN (10:35)
[2024-01-14 16:00] VITALS: BP 127/71; TEMP 98.2; O2SAT 98
[2024-01-14 20:12] VITALS: BP 115/69; TEMP 97.7; O2SAT 95
[2024-01-15 08:00] VITALS: BP 122/67; TEMP 97.9; O2SAT 99
[2024-01-15] MEDS: NA PHOS,M-B/NA PHOS,DI-BA 1 EA ENEMA RC ONE (10:17)
[2024-01-15 16:00] VITALS: BP 105/68; TEMP 98.1; O2SAT 95
[2024-01-15 20:25] VITALS: BP 100/81; TEMP 98.2; O2SAT 94
[2024-01-15 20:43] VITALS: BP 100/81; TEMP 98.2; O2SAT 94
[2024-01-16 08:28] VITALS: BP_SYST 120; BP_SYST 124; BP_DIAS 61; BP_DIAS 84; TEMP 97.7; TEMP 98.1; O2SAT 95; O2SAT 98
[2024-01-16 20:00] VITALS: BP 126/67; TEMP 97.5; O2SAT 95
[2024-01-17 08:00] VITALS: BP 117/61; TEMP 97.9; O2SAT 98
[2024-01-17 16:00] VITALS: BP 120/64; TEMP 98.1; O2SAT 94
[2024-01-17 20:00] VITALS: BP 110/71; TEMP 97.7; O2SAT 96
[2024-01-18 07:30] VITALS: BP 112/68; TEMP 97.5; O2SAT 97
[2024-01-18 16:00] VITALS: BP 117/69; TEMP 97.3; O2SAT 94
[2024-01-18 20:00] VITALS: BP 115/69; TEMP 98.2; O2SAT 95
[2024-01-19 08:20] VITALS: BP 120/63; TEMP 97.5; O2SAT 100
[2024-01-19 20:00] VITALS: BP 118/65; TEMP 97.7; O2SAT 96
[2024-01-20 08:00] VITALS: BP 125/68; TEMP 97.6; O2SAT 98
[2024-01-20 16:00] VITALS: BP 102/64; TEMP 97.6; O2SAT 96
[2024-01-20 20:00] VITALS: BP 112/67; TEMP 98.2; O2SAT 94
[2024-01-20 20:39] VITALS: BP 112/67; TEMP 98.2; O2SAT 94
[2024-01-21 08:00] VITALS: BP 123/77; TEMP 97.9; O2SAT 96
[2024-01-21] MEDS: MAG HYDROX/AL HYDROX/SIMETH 30 ML UDC PO PRN (10:41)
[2024-01-21 16:00] VITALS: BP 123/81; TEMP 97.3; O2SAT 95
[2024-01-21 20:00] VITALS: BP 108/66; TEMP 97.5; O2SAT 95
[2024-01-21 20:40] VITALS: BP 108/66; TEMP 97.5; O2SAT 95
[2024-01-22] MEDS: ZOLPIDEM TARTRATE 5 MG TABLET PO PRN (01:52)
[2024-01-22 08:00] VITALS: BP 111/69; TEMP 97.7; O2SAT 97
[2024-01-22 16:00] VITALS: BP 117/69; TEMP 98.4; O2SAT 99
[2024-01-22 20:51] VITALS: BP 111/63; TEMP 98.1; O2SAT 99
[2024-01-23 08:00] VITALS: BP 110/58; TEMP 97.8; O2SAT 97
[2024-01-23 18:49] VITALS: BP 110/60; TEMP 97.9; O2SAT 96
== END 2024-01-23 20:37 | DRG 689 ==
LOC: ER 18:22 → MED 01-10 08:06
PROVIDERS: ATTEND Internal Medicine
DX: N39.0 Urinary tract infection, site not specified (principal); E43 Unspecified severe protein-calorie malnutrition; G93.41 Metabolic encephalopathy; F31.5 Bipolar disorder, current episode depressed, severe, with psychotic features; F03.92 Unspecified dementia, unspecified severity, with psychotic disturbance; F03.94 Unspecified dementia, unspecified severity, with anxiety; F03.93 Unspecified dementia, unspecified severity, with mood disturbance; I25.10 Atherosclerotic heart disease of native coronary artery without angina pectoris; F41.9 Anxiety disorder, unspecified; J45.909 Unspecified asthma, uncomplicated; E78.5 Hyperlipidemia, unspecified; E88.09 Other disorders of plasma-protein metabolism, not elsewhere classified; I10 Essential (primary) hypertension; M19.90 Unspecified osteoarthritis, unspecified site; Z20.822 Contact with and (suspected) exposure to COVID-19; F29 Unspecified psychosis not due to a substance or known physiological condition; B96.89 Other specified bacterial agents as the cause of diseases classified elsewhere; Z68.22 Body mass index [BMI] 22.0-22.9, adult; Z79.899 Other long term (current) drug therapy
CPT/HCPCS: 36415; 80048-TC; 80053-TC; 80076-TC; 81001; 83735-TC; 84100-TC; 84443-TC; 85025-TC; 87081-TC; 87086-TC; 97110-TC; 97116-TC; 97530-TC; G0378; G0480; J3490